=== PATIENT | female | born 1980 ===

== ENCOUNTER 2020-07-05 06:49 | Outpatient (CLI) | payer OTHER, SELFPAY ==
--- NOTE | 2020-07-09 00:47 | SLEEP_ITS ---
Home Sleep Study DATE OF STUDY: 07/05/2020 ORDERING PHYSICIAN: Dr. Brandon Baker. REASON FOR THE STUDY: JAZMIN. This patient is a 40-year-old female, 5 feet 6 inches tall, weighing 290 pounds with a body mass index of 46.7. She has a history of snoring, stopping breathing at night, restless sleep. Snoring has been an issue for years. She wakes up during the night, has excessive daytime sleepiness, and difficulty awakening in the morning. She constantly snores and it is frequently loud enough that others complain. She frequently awakens at night with heartburn, belching, or coughing. She constantly has trouble sleeping if she has a cold. She frequently wakes up gasping for breath at night and has breathing problems at night, occasionally witnessed by others. She frequently sweats excessively at night. She occasionally notices her heart pounding or beating irregularly at night. She frequently falls asleep during the day rarely involuntarily, never while driving or with physical effort. She does not have loss of muscle tone with strong emotion. Occasionally has daytime trouble due to excessive sleepiness. She is an company accountant. She never feels paralyzed on waking or falling asleep. She rarely has vivid dreamlike scenes upon awakening or falling asleep. She is never afraid to go to sleep and rarely has nightmares or rarely remembers her dreams, occasionally has racing thoughts. She never feels sad or depressed. Rarely feels anxious. She occasionally has muscular tension and notices parts of her body jerking. She rarely kicks at night, occasionally has crawly achy feelings in her legs. She rarely has leg pain at night, rarely has morning jaw pain. Occasionally grinds her teeth at night, occasionally is bothered by pain during the day. She rarely is awakened by pain at night, rarely wakes up feeling stiff in the morning with sore or achy muscles and occasionally wakes up with pain in the neck and spine. She has headaches, palpitations, insomnia, concentration difficulties, and takes antacids regularly. She estimates 5 to 6 hours of sleep at night. She goes to bed at 2 a.m. and falls asleep very quickly immediately or up to 10 minutes. She wakes 2-3 times at night to go outside to smoke, will use the bathroom and go back to bed. She wakes in the morning between 7 and 8 a.m. Weekend schedule is the same. She does take naps in the afternoon, but a short nap is not refreshing. She is usually drowsy in the morning for 2 hours or longer. MEDICAL COMORBIDITIES: Nasal allergies, possible COPD, heartburn, hypertension, angina, GERD. MEDICATIONS: Amlodipine 5 mg daily. HABITS: Tobacco, 1 pack a day. Caffeine several beverages a day. No alcohol. DESCRIPTION OF THE STUDY: On the [place] Sleepiness Scale, her score is 15. This was conducted as an unattended type III portable home sleep test using 4-channel monitoring with respiratory effort channel, snoring channel, oxygen saturation channel, and heart rate channel. This study was scored using [facility] guidelines. The duration of the study is 6 hours 30 minutes. The apnea-hypopnea index is 18, oxygen desaturation index 15, lowest desaturation 80%. There were 37 apneas, 36 of these 97% were obstructive; 1 apnea, 3% was a central apnea; 81 hypopneas; 3740 snoring events and 100 desaturations with 9 minutes, 2% of the study spent below 88% saturation. Pulse ranged from 73 to 114. IMPRESSION: 1. This home sleep test shows evidence of at least moderate obstructive sleep apnea syndrome, G47.33, with an AHI of 18, significant desaturation to 80% and 9 minutes spent below 88%. She had persistent loud snoring. The patient is a candidate for auto PAP with pressures between 5 and 20 cm, heated humidifier and an appropriate
== END 2020-07-05 06:50 | disposition home or self-care (01) ==
LOC: ANHCSM 06:49
PROVIDERS: Visit Provider Student in an Organized Health Care Education/Training Program
DX: G47.33 Obstructive sleep apnea (adult) (pediatric) (principal)
CPT/HCPCS: 95806